=== PATIENT | female | born 1985 | race Caucasian/White ===

== ENCOUNTER 2023-02-18 11:08 | Emergency (ER) | payer OTHER, SELFPAY ==
[2023-02-18] VITALS (23 sets, daily range): BP systolic 99–149; BP diastolic 48–83; PULSE 68–102; RESP 9–23; TEMP 36.4; O2SAT 97–100
--- NOTE | ~2023-02-18 | CT_ITS ---
EXAMINATION: CT brain wo con DATE: 02/18/2023 13:46 INDICATION: Dizziness. Headache. TECHNIQUE: Computed tomography (CT) of the head was performed without intravenous contrast. The mA wa s adjusted according to patient size. Iterative reconstruction technique was employed. The dose-lengt h product was 529.67 mGy-cm. COMPARISON: None FINDINGS: There is no intracranial hemorrhage, acute infarction, or abnormal intracranial mass lesion . The ventricles are normal in size. The orbits are normal. The paranasal sinuses are clear. The mast oid air cells are normal. IMPRESSION: 1. Normal brain. Reviewed, dictated and finalized at location A. CAR FOREMAN IMPRESSION: 1. Normal brain.
--- NOTE | 2023-02-18 11:11 | ECG_ITS ---
Measurements Intervals [place] Rate: 79 P: 42 MD: 130 QRS: 71 QRSD: 85 T: 45 QT: 372 QTc: 428 Interpretive Statements SINUS RHYTHM BORDERLINE R WAVE PROGRESSION, ANTERIOR LEADS BASELINE WANDER- II, III, AVF BORDERLINE ECG NO PREVIOUS ECG AVAILABLE FOR COMPARISON Electronically Signed On 02-18-2023 11:42:21 ASSOCIATE ACCOUNT MANAGER by Willi Garber D.O.
[2023-02-18 11:38] LABS: Basophils Absolute Auto 0.1 K/mm3 (0.0-0.1); Basophils Percent Auto 0.9 % (0.2-1.2); Eosinophils Absolute Auto 0.3 K/mm3 (0-0.3); Eosinophils Percent Auto 4.1 % (0-4.4); Hematocrit 36.9 % (37.0-47.0); Hemoglobin 12.2 g/dL (12.0-15.0); Immature Granulocyte Absolute 0.03 K/mm3 (0.00-0.031); Immature Granulocyte Percent A 0.4 % (0-0.5); Lymphocytes Absolute Auto 2.11 K/mm3 (0.9-3.2); Lymphocytes Percent Auto 26.4 % (18.3-44.2); Mean Corpuscular HGB Conc 33.1 g/dl (32-36); Mean Corpuscular Hemoglobin 30.2 pg (26-34); Mean Corpuscular Volume 91.3 fl (80-100); Mean Platelet Volume 9.6 fl (7.4-10.4); Monocytes Absolute Auto 0.4 K/mm3 (0.1-0.6); Monocytes Percent Auto 5.3 % (2.6-8.5); Neutrophils Percent Auto 62.9 % (45.5-73.1); Platelet Count Result 280 k/mm3 (150-375); Red Blood Count 4.04 M/mm3 (4.2-5.4); Red Cell Distribution Width 13.1 % (11.5-14.5)
[2023-02-18 11:48] LABS: Alanine Aminotransferase 17 U/L (6-35); Albumin Level 4.4 g/dL (3.5-5.1); Alkaline Phosphatase 59 U/L (38-126); Anion Gap 9 mmol/L (8-16); Aspartate Amino Transferase 22 U/L (14-36); Bilirubin,Total 0.4 mg/dL (0.2-1.3); Blood Urea Nitrogen 14 mg/dL (7-17); Calcium 9.6 mg/dL (8.4-10.2); Carbon Dioxide 28 mmol/L (22-30); Chloride 101 mmol/L (98-107); Estimated CRCL calculation 91 ml/min; Estimated Glomerular Filt Rate > 60; Glucose 119 mg/dL (65-110); Potassium 3.9 mmol/L (3.4-5.0); Sodium 138 mmol/L (137-145)
--- NOTE | 2023-02-18 12:19 | ED.DIZZY ---
HPI - Dizziness General Chief Complaint: Dizziness Stated Complaint: dizziness few weeks Time Seen by Provider: 02/18/23 12:18 Source: patient Mode of arrival: ambulatory Limitations: no limitations History of Present Illness HPI Narrative: 37 years old white female healthy otherwise came to the emergency room by private car complaining of intermittent dizziness, lightheadedness, headache, everything just pains with movement, better if remaining still. She denies any fever, chills, vomiting, diarrhea, constipation or respiratory symptoms. Patient also denies any focal neuro deficit Related Data Allergies Allergy/AdvReac Type Severity Reaction Status Date / Time No Known Allergies Allergy Verified 02/18/23 13:37 Review of Systems Review of Systems: All systems reviewed & are unremarkable except as noted in HPI and below Exam Narrative: General appearance: Well-developed, well-nourished Skin: Normal color Head: Normocephalic, nontraumatic Eyes: Clear conjunctiva ENT: Oropharynx normal, ears normal, nose normal Neck: Supple, nontender Chest and respiratory: Airway patent, no respiratory distress, no accessory muscle use Heart: Regular rate/rhythm Abdomen: Soft, nontender, no organomegaly, quiet bowel sounds Vascular: Normal peripheral pulses, normal capillary refill. 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 Course Reevaluation(s) Reevaluation #1: Patient symptom resolved after having a Valium, Antivert and Zofran. Patient is ready to go home. Date: 02/18/23 Time: 15:20 Vital Signs Vital signs: Vital Signs Temperature 36.4 C 02/18/23 11:11 Pulse Rate 102 H 02/18/23 11:11 Respiratory Rate 17 02/18/23 11:11 Blood Pressure 149/83 H 02/18/23 11:11 Pulse Oximetry 99 02/18/23 11:11 Oxygen Delivery Room Air 02/18/23 11:11 Temperature 36.4 C 02/18/23 11:11 Pulse Rate 74 02/18/23 14:45 Respiratory Rate 15 02/18/23 14:45 Blood Pressure 110/61 02/18/23 14:43 Pulse Oximetry 99 02/18/23 14:45 Oxygen Delivery Room Air 02/18/23 11:11 MDM - Dizziness MDM Narrative Medical decision making narrative: Patient presents with the above symptoms Physical examination was remarkable for dizziness and lightheadedness with any head or body movement, vital signs on arrival stable, differential diagnosis include vertigo peripheral versus central. Patient denies any focal neural deficit. Workup today includes CBC, CMP, urine analysis and CT brain without contrast showed no acute abnormality to explain to patient condition. In the ED patient received Valium, Antivert and Zofran with remarkable improvement. Lab Data 02/18/23 11:30 02/18/23 11:30 Labs: Lab Results 02/18/23 02/18/23 Range/Units 11:30 14:24 WBC 8.0 (4.5-10.0) K/mm3 RBC 4.04 L (4.2-5.4) M/mm3 Hgb 12.2 (12.0-15.0) g/dL Hct 36.9 L (37.0-47.0) % MCV 91.3 (80-100) fl MCH 30.2 (26-34) pg MCHC 33.1 (32-36) g/dl RDW 13.1 (11.5-14.5) % Plt Count 280 (150-375) k/mm3 MPV 9.6 (7.4-10.4) fl Immature Gran % (Auto) 0.4 (0-0.5) % Neut % (Auto) 62.9 (45.5-73.1) % Lymph % (Auto) 26.4 (18.3-44.2) % [place] % (Auto) 5.3 (2.6-8.5) % Eos % (Auto) 4.1 (0-4.4) % Baso % (Auto) 0.9 (0.2-1.2) % Lymph # (Auto) 2.11 (0.9-3.2) K/mm3 [place] # (Auto) 0.4 (0.1-0.6) K/mm3 Eos # (Auto) 0.3 (0-0.3) K/mm3 Baso # (Auto) 0.1 (0.0-0.1) K/mm3
[2023-02-18] MEDS: ONDANSETRON HCL ODT 4 MG TABLET PO (13:37)
[2023-02-18] MEDS: MECLIZINE HCL 25 MG TABLET PO (13:37)
[2023-02-18] MEDS: diazePAM INJ (*CRX) 10 MG/2 ML SYRINGE 5 MG IV PUSH (13:38)
[2023-02-18 14:46] LABS: Add Urine Microscopic? YES; Appearance Urine Clear (Clear); Bacteria Urine None Seen /hpf; Bilirubin Urine Negative (Negative); Blood Urine Negative (Negative); Color Urine Yellow (Yellow); Glucose Urine UA Negative (Negative); Ketones Urine Negative (Negative); Leukocyte Esterase Ur 1+ LEU/UL (Negative); Need Manual Microscopic Reviewed; Nitrate Urine Negative (Negative); Non Pathogenic Casts 0-2; Protein Urine Negative (Negative); RBC Urine 0-2 /hpf (0-2); Specific Grav Ur 1.017 (1.001-1.035); Squamous Epithelial Cell Urine Few /hpf (Few); Urobilinogen Urine 0.2 mg/dL (<2.0); WBC Urine 0-5 /hpf
== END 2023-02-18 15:25 | disposition home or self-care (01) ==
PROVIDERS: General Practice; Emergency Provider Emergency Medicine; PCP Internal Medicine
DX: H81.10 Benign paroxysmal vertigo, unspecified ear (principal)
CPT/HCPCS: 36415; 70450; 80053; 81001; 81025; 85025; 93005; 96374; 99284; A9270; J3360